=== PATIENT | female | born 1960 | race Caucasian/White ===

== ENCOUNTER 2016-10-27 18:49 | Emergency (ER) | payer MEDICAID ==
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
== END 2016-10-27 19:20 | disposition home or self-care (01) ==
LOC: ER 18:49
DX: S00.83XA Contusion of other part of head, initial encounter (principal); S40.812A Abrasion of left upper arm, initial encounter; S20.319A Abrasion of unspecified front wall of thorax, initial encounter; I10 Essential (primary) hypertension; Z88.8 Allergy status to other drugs, medicaments and biological substances; X99.1XXA Assault by knife, initial encounter; Y93.89 Activity, other specified; Y92.89 Other specified places as the place of occurrence of the external cause; Y99.8 Other external cause status
CPT/HCPCS: Z7502

== ENCOUNTER 2016-12-09 14:19 | Emergency (ER) | payer MEDICAID ==
--- NOTE | 2016-12-09 14:34 | ED Physician Chart ---
Chief Complaint/HPI - Patient Information Date Seen:: 12/09/16 Time Seen:: 14:31 Chief Complaint:: PRECORDIAL CHEST PAIN SINCE YESTERDAY. History of Present Illness:: This 56-year-old female with no prior history of heart problems presents with chest pain localized to the precordial area and the area below the left clavicle. The pain radiates down into the left upper extremity and does not travel into the back. She describes the pain as being both sharp and a tightness. No increase in pain with inspiration or cough. Does have a dry cough which has been present since October 10. Half a pack of cigarettes per day. The onset of the pain was yesterday and came on gradually. She has experienced no hemoptysis, vomiting or shortness of breath. She somewhat contradicts herself when she said she does get shortness of breath with exertion over the past week. She admits to mild nausea with no vomiting. There was no increase in pain with inspiration or cough. She has not noticed any exacerbating or relieving factors. No associated feve or chills Allergies:: Allergies Allergy/AdvReac Type Severity Reaction Status Date / Time ALL OPIATES Allergy Uncoded 10/10/16 11:22 Review of Systems - Review of Systems General/Constitutional: No fever, No chills, No weight loss, No weakness, No diaphoresis, No edema, No loss of appetite Skin: No skin lesions, No rash, No bruising Head: Headache (HEADACHE was mild to moderate and bitempral.), No light- headedness Eyes: No loss of vision, No diplopia ENT: No earache, No nasal drainage, No sore throat, No tinnitus Neck: No neck pain, No swelling, No stiffness Cardio Vascular: Chest pain, No palpitations, No orthopnea, No edema (mild resp distress with exertion over the past week.) Pulmonary: No cough, No sputum, No wheezing GI: Nausea, No vomiting, No diarrhea, No pain, No constipation, No hematemesis G/U: No dysuria, No frequency, No hematuria Musculoskeletal: No bone or joint pain, No back pain, No muscle pain Endocrine: No polyuria, No polydipsia Psychiatric: No prior psych history, No anxiety, No suicidal ideation Hematopoietic: No bruising, No lymphadenopathy Neurological: No syncope, No focal symptoms, No weakness, No paresthesia, Headache, No seizure, No dizziness, No confusion, No vertigo Past Medical History - Past Medical History Past Medical History: HTN (this AM her blood pressure was 192/138 and she took one of her blood pressure pills), Dyslipidemia (is on low dose statons.), Other (PT with cardiac stress test in [place] in 2013 that was normal.) Social History: Smoker, No Alcohol, No Drug Use, Surgical History: None Medication Reviewed:: low dose statins. PMD IS DEAN SALDIVAR. Family Medical History - Family Member Mother History Unknown: Yes Ethnicity: Non- Living Status: Hx Family Cancer: Yes (MELANOMA) Hx Family Coronary Artery Disease: Yes Hx Family Congestive Heart Failure: No Hx Family Hypertension: Yes Hx Family Stroke: No Hx Family Diabetes: No Hx Family Seizures: No Hx Family Dementia: No Hx Family AIDS: No Hx Family HIV: No Hx Family COPD: No Hx Family Hepatitis: No Hx Family Psychiatric Problems: No Hx Family Tuberculosis: No Physical Exam - Physical Examination General/Constitutional: Awake, Well-developed, well-nourished, Alert, No distress, GCS 15, Non-toxic appearing, Ambulatory Other Gen/Cons comments:: MILD TO MODERATE DISTRESS FROM HER COMPLAINED OF CHEST PAIN SEVERITY WAS RATED A 6-7 OVER 10 SEVERITY. Head: Atraumatic Eyes: Lids, conjuctiva normal, PERRL, EOMI Other Eyes comments:: Normal Arcus is present. Skin: No rash, No skin lesions, No ecchymosis, Well hydrated, No lymphadenopathy Other Skin comments:: Slightly damp to the touch. ENMT: External ears, nose nl, TM canals nl, Nasal exam nl, Lips, teeth, gums nl , Oropharynx nl, Tonsils nl Neck: Nontender, Full ROM w/o pain, No JVD, No nuchal rigidity, No mass, No stridor Respiratory: Nl effort/Exclusion Other Respiratory comments:: THE PT HAS COARSE RONCHI IN BOTH THE RT AND LT BASILAR REGIONS. NO CHEST WALL TENDERNESS. Cardio Vascular: RRR, No murmur, gallop, rubs, NL S1 S2 Other Cardio Vascular comments:: Patient has good peripheral pulses in all 4 extremities. GI: No tenderness/rebounding/guarding, No organomegaly, No hernia, Normal BS's, Nondistended, No mass/bruits, No McBurney tenderness Other GI comments:: Rectal examination deferred at my discretion. : No CVA tenderness Extremities: No tenderness or effusion, Full ROM, normal strength in all extremities, No edema Other Extremities comments:: No calf tenderness and Homans sign was negative. NO CLUBINB. Neuro/Psych: Alert/oriented, DTR's symmetric, Normal sensory exam, Normal motor strength, Judgement/insight normal, Mood normal, Normal gait, No focal deficits Misc: Normal back, No paraspinal tenderness Labs/Radiology/EKG Results - Lab Results Results: Laboratory Tests 12/09/16 12/09/16 15:28 15:28 WBC 8.3 D RBC 4.51 Hgb 13.9 Hct 40.8 D MCV 90.4 MCH 30.9 MCHC Differential 34.2 RDW 12.8 Plt Count 226 MPV 9.2 Neutrophils % 59.7 Lymphocytes % 30.4 Monocytes % 6.3 Eosinophils % 3.0 Basophils % 0.6 Troponin I 0.01 CBC is unremarkable. The patient's troponin level was within the normal range. A shunt was advised that this is a first troponin and that it should be repeated in 8 hours to make sure that it remains within the normal range. The EKG had no ischemic finding. The CXR showed no cardiomegaly or CHF. NO AREAS OF PULMONARY INFILTRATES OR CONSOLIDATION. NO PLEURAL EFFUSIONS OR PNEUMOTHORAX. NO VILLA FRACTURES. - EKG Interpretations EKG Time:: 14:24 Rhythm: normal sinus rhythm at a rate of 95. [place]: the frontal plane QRS axis is normal. Rate: 95 without ectopy. Comments:: Normal WA interval. Normal QRS duration. Normal QT interval. No Q waves. No ST segment elevation or depression. Normal T waves. Impression: No evidence of acute ischemic findings. Assessment - Assessment General Assessment: CASE SUMMARY: THIS 56 YEAR OLD FEMALE PRESENTS WITH PRECORDIAL CHEST PAIN THAT RADIATES INTO HER LUE. THE PAIN HAD A COMPONENT OF TIGHTNESS. THERE WAS NO PLEURTIC COMPONENT TO THE CHEST PAIN. SHE HAD MULTIPLE RISK FACTORS FOR CAD SUCH TOBACCO USE, HYPERTENSION, AND ELEVATED CHOLESTEROL.HHHE THE PATIENT HAD AN EKG WITH WITH NO SIGNS OF ISCHEMIA. THE INITIAL TROPONIN WAS NORMAL. THE CHEST X-RAY ALLOWED FOR RULING OUT OTHER SERIOUS CAUSES OF CHEST PAIN. THE PT WAS TREAT WITH ASPIRIN 162 mg PO. SHE REFUSED THE SUB LINGUAL NTG SAYING IT WOULD MAKE HER HEADACHE WORSE. THE CASE WAS DISCUSSED WITH DR. SALDIVAR AND HE REQUESTED THAT I CONFIRM HER INSURANCE WILL ALLOW FOR HIM TO ADMIT. THE PT HAD [facility] INSURANCE AND THEY WANTED THE P ADMITTED TO ONE OF THERE CONTRACT DOCTORS. WHILE WAITING FOR THE [facility] DOCTOR TO RETURN MY CALL, THE PATIENT DECIDED SHE DIDN'T WANT TO BE ADMITTED AND THAT SHE WOULD FOLLOW UP WITH DR. SALDIVAR THIS COMINGG WEEK. I LET THE PT KNOW THAT EVEN WITH HER NORMAL STUDIES SHE WAS STILL AT RISK FOR ACS AND SUDDEN OR SEVERE DISABILITIES. SHE UNDERSTOOD THE RISKS AND LEFT THE HOSPITAL AMA. SHE WAS TOLD TO RETURN TO THE ER IF SHE CHANGED HER MILD ABOUT ADMISSION OR IF HER SYMPTOMS WORESEN. MDM DDX FOR ACUTE CHEST PAIN: NOT PNEUMONIA OR PNEUMOTHORAX BASED ON THE NORMAL CXR. SHE WAS LOW RISK FOR PULMONARY EMBOLUS BASED ON WELL'S CRITERIA. ACUTE CORONARY SYNDROME WAS NOT RULED OUT AND THAT IS WHY MY PLAN WAS TO THOMPSON THE PT FOR FURTHER DIAGNOSTIC STUDIES AND TREATMENT IF NEEDED. ED Septic Shock - . Is Septic Shock (SBP<90, OR Lactate>4 mmol\L) present?: No Reassessment (Disposition) - Reassessment Reassessment Condition:: Improved - Diagnosis Diagnosis:: ACUTE CHEST PAIN OF UNCLEAR CAUSE. HYPERTENSION. HYPERCHOLESTERALEMIA. - Patient Disposition Discharge/Transfer:: Against Medical Advice ED Discharge Plan - Patient Disposition Admit/Discharge/Transfer: AGAINST MEDICAL ADVICE Condition at Disposition: Stable
[2016-12-09] MEDS ORDERED: Aspirin 81mg Chewable Tab PO STA (15:23)
[2016-12-09] MEDS ORDERED: Labetalol 5 mg/mL 20 mL Vial IVP STA (15:28)
[2016-12-09] MEDS ORDERED: Aspirin 81mg Chewable Tab ONE (15:33)
[2016-12-09] MEDS ORDERED: Labetalol 5 mg/mL 20 mL Vial ONE (15:34)
[2016-12-09 15:36] LABS: % BASOPHILS 0.6 % (0.0-2.0); % LYMPHOCYTES 30.4 % (20.0-50.0); % MONOCYTES 6.3 % (2.0-10.0); % NEUTROPHILS 59.7 % (40.0-80.0); HEMOGLOBIN 13.9 gm/dL (11.7-15.5); MEAN CELL VOLUME 90.4 fl (81-100); MEAN CORPUSCULAR HEMOGLOBIN 30.9 pg (27.0-31.0); MEAN CORPUSCULAR HGB CONC 34.2 pg (28.0-36.0); MEAN PLATELET VOLUME 9.2 fl; NEUTROPHILE ABSOLUTE 5.1 Th/cmm (1.8-8.0); PLATELET COUNT 226 Th/cmm (150-400); RED BLOOD COUNT 4.51 Mil/cmm (3.80-5.10); RED CELL DISTRIBUTION WIDTH 12.8 % (11.5-20.0)
[2016-12-09 15:44] LABS: HEMATOCRIT 40.8 % (35.0-45.0); WHITE BLOOD COUNT 8.3 Th/cmm (4.8-10.8)
--- NOTE | 2016-12-09 16:01 | Diagnostic Imaging Report ---
CHEST X-RAY: AP view INDICATION: pain COMPARISON: 10/11/2016 FINDINGS: There is no focal consolidation or pleural effusions The heart is normal in size. Degenerative changes of the spine are noted. IMPRESSION: No focal acute pulmonary process.
== END 2016-12-09 17:45 | disposition left against medical advice (07) ==
LOC: ER 14:19
DX: R07.89 Other chest pain (principal); I10 Essential (primary) hypertension; E78.5 Hyperlipidemia, unspecified; F17.200 Nicotine dependence, unspecified, uncomplicated; Z88.8 Allergy status to other drugs, medicaments and biological substances
CPT/HCPCS: 36415-UA; 71010-TC; 84484-TC; 85025-TC; 90799; 93005; Z7610

== ENCOUNTER 2017-04-07 16:03 | Emergency (ER) | payer MEDICAID ==
[2017-04-07] MEDS ORDERED: EPINEPHRINE INJ ONE (16:23)
[2017-04-07] MEDS ORDERED: LIDOCAINE INJ ONE (16:23)
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
== END 2017-04-07 17:35 | disposition home or self-care (01) ==
LOC: ER 16:03
DX: S61.512A Laceration without foreign body of left wrist, initial encounter (principal); F17.200 Nicotine dependence, unspecified, uncomplicated; Z90.710 Acquired absence of both cervix and uterus; X58.XXXA Exposure to other specified factors, initial encounter; Y93.89 Activity, other specified; Y92.89 Other specified places as the place of occurrence of the external cause; Y99.8 Other external cause status
CPT/HCPCS: X6444; Z7502